=== PATIENT | female | born 1970 | race Caucasian/White ===

== ENCOUNTER 2020-08-10 12:21 | Emergency (ER) | payer BC, OTHER | END 2020-08-10 13:41 | disposition home or self-care (01) | LOC: ER1 12:21 | DX: S63.501A Unspecified sprain of right wrist, initial encounter (principal); I10 Essential (primary) hypertension; Z90.710 Acquired absence of both cervix and uterus; W18.40XA Slipping, tripping and stumbling without falling, unspecified, initial encounter; Y93.01 Activity, walking, marching and hiking | CPT/HCPCS: 29125; 73110; 99283 ==

== ENCOUNTER → 2021-06-27 | Outpatient (CLI) | payer BC, OTHER ==
[2021-06-27 09:29] LABS: HEMOGLOBIN 14.1 gm/dl (12.3-15.3); RED BLOOD COUNT 4.77 M/UL (4.00-5.10); WHITE BLOOD COUNT 8.7 K/UL (4.5-11.0)
[2021-06-27 09:51] LABS: BUN/CREATININE RATIO 17 (0-10)
== END ==
LOC: LAB 08:50
PROVIDERS: Nurse Practitioner Family
DX: I10 Essential (primary) hypertension (principal)
CPT/HCPCS: 80053; 80061; 82607; 84439; 84443; 85025

== ENCOUNTER 2021-09-24 20:47 | Emergency (ER) | payer OTHER ==
[2021-09-24] MEDS ORDERED: CYCLOBENZAPRINE10 MG PO (23:54)
[2021-09-24] MEDS ORDERED: NAPROSYN500 MG PO (23:54)
== END 2021-09-25 00:12 | disposition home or self-care (01) ==
LOC: ER1 20:47
DX: S13.4XXA Sprain of ligaments of cervical spine, initial encounter (principal); S23.3XXA Sprain of ligaments of thoracic spine, initial encounter; R51.9 Headache, unspecified; I10 Essential (primary) hypertension; V43.52XA Car driver injured in collision with other type car in traffic accident, initial encounter; Y92.410 Unspecified street and highway as the place of occurrence of the external cause
CPT/HCPCS: 70450; 72072; 72125; 99284

== ENCOUNTER → 2022-02-06 | Outpatient (CLI) | payer BC, OTHER ==
[~2022-02-06] MED LIST: CYCLOBENZAPRINE10 MG PO; NAPROSYN500 MG PO
[2022-02-07 09:10] LABS: CORTISOL 0.6 ug/dL (.)
[2022-02-10 21:09] LABS: METANEPHRINE, PL <10.0 pg/mL (0.0-88.0); NORMETANEPHRINE, PL 44.3 pg/mL (0.0-218.9)
== END ==
LOC: LAB 07:48
PROVIDERS: Nurse Practitioner Family
DX: E27.8 Other specified disorders of adrenal gland (principal)
CPT/HCPCS: 82088; 82384; 82533; 83835; 84244

== ENCOUNTER → 2022-02-19 | Outpatient (CLI) | payer BC, OTHER | LOC: CT 09:49 | DX: I10 Essential (primary) hypertension (principal); E27.8 Other specified disorders of adrenal gland | CPT/HCPCS: 36415; 74170; 82565; Q9967 ==